=== PATIENT | male | born 1990 | race Caucasian/White ===

== ENCOUNTER 2018-12-27 14:46 | Outpatient (CLI) | payer OTHER ==
--- NOTE | 2018-12-27 16:07 | RAD ---
EXAM: Two views chest PROVIDED CLINICAL HISTORY: Asthma COMPARISON: 09/09/2018 obtained from [facility]. FINDINGS: Cardiac silhouette and pulmonary vasculature are within normal limits. The lungs are clear. The osse ous structures have a normal appearance. Chest is stable from prior exam. IMPRESSION: No acute cardiopulmonary process.
== END 2018-12-27 14:47 | disposition home or self-care (01) ==
LOC: CP 14:46
PROVIDERS: ATTEND Orthopaedic Surgery
DX: J45.909 Unspecified asthma, uncomplicated (principal)
CPT/HCPCS: 71046; 94060; 94727; 94729